=== PATIENT | male | born 1950 | race Caucasian/White ===

== ENCOUNTER → 2023-10-17 06:50 | Day surgery (SDC) | payer MEDICARE, OTHER, SELFPAY | LOC: GI 06:50 | PROVIDERS: ATTENDING PHYSICIAN Internal Medicine Gastroenterology | DX: Z12.11 Encounter for screening for malignant neoplasm of colon (principal); K57.30 Diverticulosis of large intestine without perforation or abscess without bleeding; K64.8 Other hemorrhoids | CPT/HCPCS: G0121 ==

== ENCOUNTER → 2023-11-19 09:25 | Outpatient (REF) | payer MEDICARE, OTHER, SELFPAY ==
[2023-11-19 11:16] LABS: % Basophils 1.2 % (0-2); % Eosinophils 5.5 % (0-6); % Immature Granulocytes 0.4 % (0-0.5); % Lymphocytes 34.9 % (20.5-51.1); % Monocytes 9.8 % (1.7-9.3); % Neutrophils 48.2 % (42.2-75.2); Absolute Basophils 0.1 10^3/uL (0-0.2); Absolute Eosinophils 0.3 10^3/uL (0-0.7); Absolute Lymphocytes 1.7 10^3/uL (1.2-3.4); Absolute Monocytes 0.5 10^3/uL (0.1-0.6); Absolute Neutrophils 2.4 10^3/uL (1.4-6.5); Hematocrit 44.4 % (39.0-52.0); Hemoglobin 15.8 g/dL (13.0-18.0); Mean Corp Hgb Conc. 35.6 g/dL (33.0-37.0); Mean Corpuscular Volume 89.9 fL (80.0-94.0); Mean Platelet Volume 11.2 fL (7.4-10.4); Nucleated Red Blood Cells % 0 % (-); Platelet Count 163 10^3/uL (130-400); Red Blood Cell Count 4.94 10^6/uL (4.70-6.10); Red Cell Dist. Width 12.7 % (11.5-14.5); White Blood Cell Count 4.9 10^3/uL (4.8-10.8)
[2023-11-19 11:26] LABS: ALT (SGPT) 27 U/L (0-50); AST (SGOT) 30 U/L (17-59); Albumin 4.4 g/dl (3.5-5.0); Alkaline Phosphatase 48 U/L (38-126); Blood Urea Nitrogen 21 mg/dl (9-20); Calcium 9.7 mg/dl (8.4-10.2); Carbon Dioxide 29 mmol/L (22-30); Chloride 103 mmol/L (98-107); Glucose 86 mg/dl (70-99); HDL Cholesterol 66 mg/dl; LDL Cholesterol, Calculated 56 mg/dl; Potassium 4.8 mmol/L (3.5-5.1); Sodium 144 mmol/L (135-145); Total Bilirubin 0.5 mg/dl (0.2-1.3); Total Cholesterol 132 mg/dl (50-199); Total Protein 7.1 g/dl (6.3-8.2); Triglyceride 50 mg/dl (10-149); Very Low Density Lipoprotein 10 mg/dl (0-30); eGFR > 60.00
[2023-11-19 11:49] LABS: PSA, Total - Screen 3.72 ng/ml (0.0-4.0); TSH Reflex To Free T4 1.54 uIU/ml (0.47-4.68)
== END ==
LOC: RAD 09:25
PROVIDERS: ATTENDING PHYSICIAN Registered Nurse
DX: Z00.00 Encounter for general adult medical examination without abnormal findings (principal); E78.2 Mixed hyperlipidemia; Z12.5 Encounter for screening for malignant neoplasm of prostate
CPT/HCPCS: 36415; 80053; 80061; 84443; 85025; G0103

== ENCOUNTER → 2024-12-03 08:52 | Outpatient (REF) | payer MEDICARE, OTHER, SELFPAY ==
[2024-12-03 09:42] LABS: Hematocrit 43.8 % (39.0-52.0); Hemoglobin 14.7 g/dL (13.0-18.0); Mean Corp Hgb Conc. 33.6 g/dL (33.0-37.0); Mean Corpuscular Volume 88.5 fL (80.0-94.0); Nucleated Red Blood Cells % 0 % (-); Platelet Count 164 10^3/uL (130-400); Red Cell Dist. Width 12.7 % (11.5-14.5)
[2024-12-03 13:43] LABS: ALT (SGPT) 24 U/L (0-50); AST (SGOT) 25 U/L (17-59); Albumin 4.4 g/dl (3.5-5.0); Alkaline Phosphatase 37 U/L (38-126); Blood Urea Nitrogen 22 mg/dl (9-20); Calcium 9.8 mg/dl (8.4-10.2); Carbon Dioxide 30 mmol/L (22-30); Chloride 106 mmol/L (98-107); Glucose 87 mg/dl (70-99); HDL Cholesterol 62 mg/dl; LDL Cholesterol, Calculated 60 mg/dl; Potassium 4.8 mmol/L (3.5-5.1); Sodium 140 mmol/L (135-145); Total Protein 7.2 g/dl (6.3-8.2); Very Low Density Lipoprotein 10 mg/dl (0-30); eGFR > 60.00
== END ==
LOC: REG 08:52
PROVIDERS: ATTENDING PHYSICIAN Registered Nurse
DX: E78.2 Mixed hyperlipidemia (principal); Z00.00 Encounter for general adult medical examination without abnormal findings
CPT/HCPCS: 36415; 80053; 80061; 84443; 85025